=== PATIENT | female | born 1980 | race African-American/Black ===

== ENCOUNTER 2020-03-20 09:26 | Emergency (ER) | payer SELFPAY ==
[~2020-03-20] VITALS: Ht 162.6 cm; Wt 46.0 kg
[~2020-03-20 09:26] MED LIST: AMLO10TA80 PO
[2020-03-20 10:20] LABS: CLARITY URINE CLEAR (CLEAR); COLOR URINE YELLOW (YELLOW); KETONES URINE NEGATIVE (NEGATIVE); LEUKOCYTE ESTERASE URINE NEGATIVE (NEGATIVE); NITRITE URINE NEGATIVE (NEGATIVE); OCCULT BLOOD URINE NEGATIVE (NEGATIVE); PROTEIN URINE NEGATIVE (NEGATIVE); SPECIFIC GRAVITY URINE 1.012 (1.005-1.030); UROBILINOGEN URINE 0.2 E.U./dL (0.2-1.0)
[2020-03-20 11:01] VITALS: BP 168/98
== END 2020-03-20 11:03 | disposition home or self-care (01) ==
LOC: ER 09:26
DX: R31.9 Hematuria, unspecified (principal); M54.12 Radiculopathy, cervical region; I10 Essential (primary) hypertension
CPT/HCPCS: 81003; 99283

== ENCOUNTER 2020-05-02 22:14 | Emergency (ER) | payer MEDICAID ==
[~2020-05-02] VITALS: Ht 162.6 cm; Wt 45.0 kg
[2020-05-02] MEDS ORDERED: IBUPROFEN 600MG TABLET PO STA (22:40)
[2020-05-02 23:14] LABS: BASOPHILS % 0.6 % (0.0-2.0); EOSINOPHILS % 0.7 % (0.0-5.0); HEMATOCRIT. 37.3 % (36.0-48.0); HEMOGLOBIN. 12.9 g/dL (12.0-16.0); LYMPHOCYTES % 18.9 % (20.0-50.0); MEAN CORPUSCULAR HEMOGLOBIN 33.7 pg (28.0-32.0); MEAN CORPUSCULAR VOLUME 97.8 fL (81.0-99.0); MEAN PLATELET VOLUME 7.1 fl (7.4-10.4); MONOCYTES % 11.3 % (2.0-8.0); NEUTROPHILS % 68.5 % (40.0-76.0); PLATELET 280 x1000/uL (130-400); RED BLOOD CELL COUNT 3.82 mill/uL (4.2-5.4)
[2020-05-02 23:18] LABS: CHLORIDE 109 mEq/L (98-107)
[2020-05-02 23:18] LABS: *AMPHETAMINES SCREEN URINE NEGATIVE (NEGATIVE); *BARBITURATES SCREEN URINE NEGATIVE (NEGATIVE); *BENZODIAZEPINES SCREEN URINE NEGATIVE (NEGATIVE); *COCAINE SCREEN URINE NEGATIVE (NEGATIVE); CANNABINOID URINE SCREEN NEGATIVE (NEGATIVE); METHADONE URINE SCREEN NEGATIVE (NEGATIVE); OPIATES URINE SCREEN NEGATIVE (NEGATIVE); PHENCYCLIDINE URINE SCREEN NEGATIVE (NEGATIVE)
[2020-05-02 23:22] LABS: ETHANOL BLOOD < 10 mg/dL
[2020-05-02] MEDS ORDERED: ONDANSETRON 4MG ODT PO ONE (23:30)
[2020-05-02] MEDS ORDERED: POTASSIUM CHLORIDE 20MEQ TABLET SR PO ONE (23:45)
[2020-05-03 00:10] VITALS: BP 132/87
== END 2020-05-03 00:44 | disposition home or self-care (01) ==
LOC: ER 22:14
DX: R07.89 Other chest pain (principal); E87.6 Hypokalemia; F17.290 Nicotine dependence, other tobacco product, uncomplicated; I10 Essential (primary) hypertension
CPT/HCPCS: 36415; 71045; 80053; 80305; 80320; 81025; 84484; 85025; 85379; 93005; 99285; 99406; Q0162; G0480

== ENCOUNTER 2021-09-13 19:05 | Emergency (ER) | payer MEDICAID ==
[~2021-09-13] VITALS: Ht 160 cm; Wt 60.0 kg
[2021-09-14 03:35] LABS: BASOPHILS % 0.9 % (0.0-2.0); EOSINOPHILS % 6.8 % (0.0-5.0); HEMATOCRIT. 40.9 % (36.0-48.0); HEMOGLOBIN. 13.9 g/dL (12.0-16.0); LYMPHOCYTES % 34.7 % (20.0-50.0); MEAN CORPUSCULAR HEMOGLOBIN 33.4 pg (28.0-32.0); MEAN CORPUSCULAR VOLUME 98.1 fL (81.0-99.0); MEAN PLATELET VOLUME 7.7 fl (7.4-10.4); MONOCYTES % 8.6 % (2.0-8.0); PLATELET 279 x1000/uL (130-400); RED BLOOD CELL COUNT 4.17 mill/uL (4.2-5.4); RED CELL DISTRIBUTION WIDTH 12.7 % (11.6-14.6)
[2021-09-14 03:37] LABS: CLARITY URINE CLEAR (CLEAR); COLOR URINE YELLOW (YELLOW); KETONES URINE NEGATIVE (NEGATIVE); LEUKOCYTE ESTERASE URINE NEGATIVE (NEGATIVE); NITRITE URINE NEGATIVE (NEGATIVE); OCCULT BLOOD URINE 3+ (NEGATIVE); PROTEIN URINE NEGATIVE (NEGATIVE); SPECIFIC GRAVITY URINE 1.016 (1.005-1.030); UROBILINOGEN URINE 0.2 E.U./dL (0.2-1.0)
[2021-09-14 03:51] LABS: CHLORIDE 109 mEq/L (98-107)
[2021-09-14 04:50] VITALS: BP 156/97
[2021-09-15] MEDS ORDERED: FAMO-135 MT (08:45)
[2021-09-15] MEDS ORDERED: ONDA4TAB5 MT (08:45)
[2021-09-15] MEDS ORDERED: MAG-55 MT (08:45)
[2021-09-15] MEDS ORDERED: TOPUD MT (12:55)
== END 2021-09-14 06:10 | disposition home or self-care (01) ==
LOC: ER 19:05
DX: R42 Dizziness and giddiness (principal); I10 Essential (primary) hypertension
CPT/HCPCS: 36415; 71045; 80053; 81003; 81025; 83880; 84484; 85025; 93005; 99285

== ENCOUNTER 2021-09-16 23:36 | Emergency (ER) | payer MEDICAID ==
[~2021-09-16] VITALS: Ht 160 cm; Wt 57.0 kg
[~2021-09-16 23:36] MED LIST changes: +FAMO-135 MT; +MAG-55 MT; +ONDA4TAB5 MT; +TOPUD MT
[2021-09-17 02:15] LABS: BASOPHILS % 0.9 % (0.0-2.0); EOSINOPHILS % 6.3 % (0.0-5.0); HEMATOCRIT. 39.3 % (36.0-48.0); HEMOGLOBIN. 13.2 g/dL (12.0-16.0); MEAN CORPUSCULAR HEMOGLOBIN 33.5 pg (28.0-32.0); MEAN CORPUSCULAR VOLUME 99.9 fL (81.0-99.0); MEAN PLATELET VOLUME 8.2 fl (7.4-10.4); MONOCYTES % 10.6 % (2.0-8.0); NEUTROPHILS % 40.2 % (40.0-76.0); PLATELET 240 x1000/uL (130-400); RED BLOOD CELL COUNT 3.94 mill/uL (4.2-5.4); RED CELL DISTRIBUTION WIDTH 12.9 % (11.6-14.6)
[2021-09-17 02:24] LABS: CHLORIDE 111 mEq/L (98-107)
[2021-09-17] MEDS ORDERED: PSEU120T56 MT (04:11)
[2021-09-17 05:24] VITALS: BP 133/76
== END 2021-09-17 05:25 | disposition home or self-care (01) ==
LOC: ER 23:36
DX: J06.9 Acute upper respiratory infection, unspecified (principal); I10 Essential (primary) hypertension; F17.290 Nicotine dependence, other tobacco product, uncomplicated
CPT/HCPCS: 36415; 71045; 80053; 83880; 84484; 85025; 93005; 99285; 99406

== ENCOUNTER 2021-10-01 03:58 | Emergency (ER) | payer MEDICAID ==
[~2021-10-01] VITALS: Ht 162.6 cm; Wt 57.0 kg
[~2021-10-01 03:58] MED LIST changes: +PSEU120T56 MT
[2021-10-01 04:06] VITALS: BP 183/120
[2021-10-01 05:42] LABS: BASOPHILS % 0.8 % (0.0-2.0); HEMATOCRIT. 40.1 % (36.0-48.0); HEMOGLOBIN. 13.9 g/dL (12.0-16.0); LYMPHOCYTES % 41.7 % (20.0-50.0); MEAN CORPUSCULAR HEMOGLOBIN 33.8 pg (28.0-32.0); MEAN CORPUSCULAR VOLUME 97.1 fL (81.0-99.0); MEAN PLATELET VOLUME 7.8 fl (7.4-10.4); MONOCYTES % 11.7 % (2.0-8.0); NEUTROPHILS % 40.8 % (40.0-76.0); PLATELET 250 x1000/uL (130-400); RED BLOOD CELL COUNT 4.13 mill/uL (4.2-5.4); RED CELL DISTRIBUTION WIDTH 13.1 % (11.6-14.6)
[2021-10-01 05:46] LABS: CHLORIDE 109 mEq/L (98-107)
[2021-10-01 06:21] LABS: HCG SCREEN NEGATIVE
[2021-10-01 07:00] LABS: CLARITY URINE CLEAR (CLEAR); COLOR URINE YELLOW (YELLOW); KETONES URINE NEGATIVE (NEGATIVE); LEUKOCYTE ESTERASE URINE NEGATIVE (NEGATIVE); NITRITE URINE NEGATIVE (NEGATIVE); OCCULT BLOOD URINE NEGATIVE (NEGATIVE); PROTEIN URINE NEGATIVE (NEGATIVE); SPECIFIC GRAVITY URINE 1.025 (1.005-1.030); UROBILINOGEN URINE 0.2 E.U./dL (0.2-1.0)
[2021-10-01] MEDS ORDERED: TOPUD PO (08:01)
== END 2021-10-01 08:38 | disposition home or self-care (01) ==
LOC: ER 04:30
DX: R10.32 Left lower quadrant pain (principal); I10 Essential (primary) hypertension
CPT/HCPCS: 36415; 74176; 80053; 81003; 84703; 85025; 99284

== ENCOUNTER 2021-10-20 00:25 | Emergency (ER) | payer MEDICAID ==
[~2021-10-20] VITALS: Ht 162.6 cm; Wt 59.0 kg
[~2021-10-20 00:25] MED LIST changes: +TOPUD PO
[2021-10-20 02:48] LABS: CLARITY URINE CLEAR (CLEAR); COLOR URINE YELLOW (YELLOW); KETONES URINE NEGATIVE (NEGATIVE); LEUKOCYTE ESTERASE URINE NEGATIVE (NEGATIVE); NITRITE URINE NEGATIVE (NEGATIVE); OCCULT BLOOD URINE NEGATIVE (NEGATIVE); PROTEIN URINE NEGATIVE (NEGATIVE); SPECIFIC GRAVITY URINE 1.009 (1.005-1.030); UROBILINOGEN URINE 0.2 E.U./dL (0.2-1.0)
[2021-10-20 03:00] VITALS: BP 154/98
[2021-10-20] MEDS ORDERED: PERM60CR4 TP (03:26)
== END 2021-10-20 04:34 | disposition home or self-care (01) ==
LOC: ER 00:25
DX: B86 Scabies (principal); R10.9 Unspecified abdominal pain; I10 Essential (primary) hypertension; Z59.00 Homelessness unspecified
CPT/HCPCS: 81003; 81025; 99283

== ENCOUNTER 2021-10-29 01:39 | Emergency (ER) | payer MEDICAID ==
[~2021-10-29] VITALS: Ht 160 cm; Wt 59.0 kg
[~2021-10-29 01:39] MED LIST changes: +PERM60CR4 TP
[2021-10-29 01:43] VITALS: BP 154/105
[2021-10-29] MEDS ORDERED: HYDR453.3 TP (02:24)
[2021-10-29] MEDS ORDERED: DIPH25TA62 PO (02:24)
== END 2021-10-29 02:41 | disposition home or self-care (01) ==
LOC: ER 01:39
DX: L42 Pityriasis rosea (principal); I10 Essential (primary) hypertension; Z91.14 Patient's other noncompliance with medication regimen
CPT/HCPCS: 99283

== ENCOUNTER 2021-12-06 | Emergency (ER) | payer MEDICAID ==
[~2021-12-06] VITALS: Ht 162.6 cm; Wt 52.0 kg
[~2021-12-06] MED LIST changes: +DIPH25TA62 PO; +HYDR453.3 TP
[2021-12-06 03:10] VITALS: BP 148/90
[2021-12-06] MEDS ORDERED: ELIMC TP (03:24)
[2021-12-06] MEDS ORDERED: LORA10TA7 MT (03:25)
[2021-12-06] MEDS ORDERED: DEXTL MT (03:26)
== END 2021-12-06 03:52 | disposition home or self-care (01) ==
LOC: ER
DX: B86 Scabies (principal); R05.9 Cough, unspecified; I10 Essential (primary) hypertension; Z59.00 Homelessness unspecified
CPT/HCPCS: 71045; 99283